=== PATIENT | male | born 1955 | race Caucasian/White ===

== ENCOUNTER 2021-11-03 08:13 | Inpatient (IN) | payer OTHER, BC ==
[2021-11-03] MEDS ORDERED: ONDANSETRON 4 MG/2 ML VIAL ONE (08:40)
[2021-11-03] MEDS ORDERED: MORPHINE 4 MG/ML SYR ONE (08:40)
[2021-11-03 08:52] LABS: Hematocrit 44.8 % (39.6-49.0); Lymphocytes % 32.4 % (15.3-44.8); MCV 83.9 fL (80-100); MPV 8.1 fL (7.6-11.3); RBC Red Blood Cell Count 5.34 M/uL (4.33-5.43)
[2021-11-03 09:00] LABS: Protime INR 1.12
[2021-11-03 09:13] LABS: Albumin 3.9 g/dL (3.4-5.0); Bilirubin Direct 0.2 mg/dL (0-0.2); Bilirubin Total 0.9 mg/dL (0.2-1.0); Magnesium 2.2 mg/dL (1.8-2.4); Potassium 3.8 mmol/L (3.5-5.1); Protein, Total 8.3 g/dL (6.4-8.2)
[2021-11-03] MEDS ORDERED: FENTANYL CITR 100 MCG/2 ML ONE ×2 (09:14→12:27)
--- NOTE | 2021-11-03 09:41 | RAD REPORT ---
EXAM DESCRIPTION: CT - Chest For Pe Angio - 11/03/2021 9:25 am CLINICAL HISTORY: chest pain, recent surgery COMPARISON: No comparisons TECHNIQUE: Dynamically enhanced 3 mm thick images of the chest were obtained during administration o f approximately 150mL Isovue 370 IV contrast. Coronal and oblique MIP reconstruction images were gene rated and reviewed. Exam utilizes a protocol to evaluate the pulmonary arterial tree. All CT scans are performed using dose optimization technique as appropriate and may include automated exposure control or mA/KV adjustment according to patient size. FINDINGS: No pulmonary emboli are identified. The aorta as imaged shows no acute or suspicious finding. No pericardial thickening or effusion. No infiltrate or mass in the lung parenchyma. No pleural effusion or pleural thickening. No mediastinal or hilar suspicious masses. No chest wall masses or abnormal axillary lymphadenopathy. IMPRESSION: No pulmonary emboli identified. No other significant or suspicious findings.
--- NOTE | 2021-11-03 09:44 | RAD REPORT ---
EXAM DESCRIPTION: CT - Abdomen Pelvis W Contrast - 11/03/2021 9:24 am CLINICAL HISTORY: abdominal pain, chest pain, recent surgery COMPARISON: No comparisons TECHNIQUE: Biphasic, helical CT imaging of the abdomen and pelvis was performed following 100 ml non -ionic IV contrast. No oral contrast administered. All CT scans are performed using dose optimization technique as appropriate and may include automated exposure control or mA/KV adjustment according to patient size. FINDINGS: No suspicious findings in the lung bases. The liver, spleen, and pancreas show no suspicious findings. Gallbladder and biliary tree are also wi thout suspicious finding. Symmetric renal function is seen with no hydronephrosis or suspicious renal mass. No obstructing or n onobstructing calculi. No pyelonephritis or acute parenchymal process. No bladder abnormalities. No a drenal abnormalities. No dilated bowel loops or bowel wall thickening. Appendix is normal. Left-sided diverticulosis presen t without diverticulitis. No free air, free fluid or inflammatory stranding. No hernia, mass or bulk y lymphadenopathy. No suspicious bony findings. IMPRESSION: Contrast enhanced CT abdomen and pelvis showing no significant or suspicious finding.
--- NOTE | 2021-11-03 10:12 | RAD REPORT ---
EXAM DESCRIPTION: RAD - Chest Single View - 11/03/2021 9:45 am CLINICAL HISTORY: CHEST PAIN COMPARISON: None TECHNIQUE: AP portable chest image was obtained 11/03/2021 9:45 am . FINDINGS: Lungs are clear. Heart and vasculature are normal. No measurable pleural effusion and no p neumothorax. No acute bony abnormality seen. No acute aortic findings suspected. IMPRESSION: No acute cardiopulmonary process.
[2021-11-03] MEDS ORDERED: ASPIRIN 81 MG CHEWABLE TABLET ONE (10:16)
[2021-11-03] MEDS ORDERED: LIDOCAINE 1% 20 ML MDV ONE (12:26)
[2021-11-03] MEDS ORDERED: HEPA 1000U/500MLS 2,000 UNIT/1,000 ML BAG IV ONE (12:26)
[2021-11-03] MEDS ORDERED: HEPARIN 10,000 UNIT/10 ML VIAL IV ONE (12:27)
[2021-11-03] MEDS ORDERED: HEPARIN 5000 UNIT/ML 1 ML VIAL ONE (12:27)
[2021-11-03] MEDS ORDERED: VERAPAMIL HCL 10 MG/4 ML VIAL IV ONE (12:27)
[2021-11-03] MEDS ORDERED: MIDAZOLAM HCL 2 MG/2 ML INJ ONE (12:27)
[2021-11-03] MEDS ORDERED: ATROPINE SULF 1 MG/10 ML SYR IV ONE (12:27)
[2021-11-03] MEDS ORDERED: TICAGRELOR 90 MG TABLET PO ONE (12:28)
[2021-11-03] MEDS ORDERED: ASPIRIN 325 MG TAB ONE (12:28)
[2021-11-03] MEDS ORDERED: CLOPIDOGREL 75 MG TABLET ONE (12:28)
--- NOTE | 2021-11-03 12:37 | EDPHYS ---
Physician Documentation [facility] Name: Kaz Workman Age: 66 yrs Sex: Male : 1955 Arrival Date: 11/03/2021 Time: 08:13 Bed 3 Private MD: ED Physician Jacob Gomez HPI: 11/03 08:14 This 66 yrs old Male presents to ER via Wheelchair with complaints of Chest Pain. m 08:14 The patient or guardian reports chest pain that is located primarily in the substernal [facility] area. Onset: acutely, just prior to arrival, today. The pain radiates to This is a 66 year old male with no chronic medical conditions that presents to the ED with complaints of . Historical: - Allergies: 08:15 No Known Allergies; aa5 - Home Meds: 08:15 Oxycodone HCl Oral [Active]; Tramadol Oral [Active]; Celebrex Oral [Active]; tizanidine aa5 oral [Active]; - PMHx: 08:15 None; aa5 - PSHx: 08:15 R knee replacement; Right hand; R inguinal hernia; L little finger; aa5 - Immunization history:: Adult Immunizations unknown. - Social history:: Smoking status: Patient denies any tobacco usage or history of. ROS: 12:09 Constitutional: Negative for fever, chills, and weight loss. jmm 12:09 Cardiovascular: Positive for chest pain. 12:09 Abdomen/GI: Positive for abdominal pain. 12:09 All other systems are negative. Exam: 12:09 Constitutional: This is a well developed, well nourished patient who is awake, alert, jmm and in no acute distress. Head/Face: atraumatic. Eyes: EOMI, no conjunctival erythema appreciated ENT: Moist Mucus Membranes Neck: Trachea midline, Supple Chest/axilla: Normal chest wall appearance and motion. 12:09 Back: Normal ROM Skin: General appearance color normal MS/ Extremity: Moves all extremities, no obvious deformities appreciated, no edema noted to the lower extremities Neuro: Awake and alert Psych: Behavior is normal, Mood is normal, Patient is cooperative and pleasant 12:09 Cardiovascular: Rate: normal, Rhythm: regular. 12:09 Respiratory: the patient does not display signs of respiratory distress, Respirations: normal, Breath sounds: are clear throughout. 12:09 Abdomen/GI: Inspection: abdomen appears normal, Palpation: soft, mild abdominal tenderness, in the epigastric area. Vital Signs: 08:15 BP 155 / 101; Pulse 70; Resp 26 S; Temp 97.6(TE); Pulse Ox 100% on R/A; Weight 78.47 kg aa5 (R); Height 6 ft. 1 in. (185.42 cm) (R); Pain 7/10; 09:00 BP 162 / 106; Pulse 52; Resp 16 S; Pulse Ox 100% on R/A; aa5 09:30 BP 138 / 93; Pulse 57; Resp 16 S; Pulse Ox 96% on R/A; aa5 10:30 BP 151 / 89; Pulse 60; Resp 16 S; Pulse Ox 98% on R/A; aa5 11:30 BP 141 / 78; Pulse 63; Resp 16 S; Temp 97.8(TE); Pulse Ox 98% on R/A; aa5 08:15 Body Mass Index 22.82 (78.47 kg, 185.42 cm) aa5 MDM: 08:22 Patient medically screened. [facility] 11:57 The patient was given aspirin in the Emergency Department. viviane 12:10 Data reviewed: vital signs, nurses notes. Counseling: I had a detailed discussion with maria eugenia the patient and/or guardian regarding: the historical points, exam findings, and any diagnostic results supporting the discharge/admit diagnosis, the need for outpatient follow up, to return to the emergency department if symptoms worsen or persist or if there are any questions or concerns that arise at home. 11/03 08:14 Order name: Basic Metabolic Panel; Complete Time: 09:35 [facility] 11/03 08:14 Order name: CBC with Diff; Complete Time: 09:04 [facility] 11/03 08:14 Order name: LFT's; Complete Time: 09:35 [facility] 11/03 08:14 Order name: Magnesium; Complete Time: :35 [facility] 11/03 08:14 Order name: NT PRO-BNP; Complete Time: 09:35 [facility] 11/03 08:14 Order name: PT-INR; Complete Time: 09:04 [facility] 11/03 08:14 Order name: Troponin HS; Complete Time: 09:35 [facility] 11/03 08:14 Order name: XRAY Chest (1 view); Complete Time: 10:15 [facility] 11/03 08:23 Order name: SARS-COV-2 RT PCR (Document "Date of Onset" if Symptomatic); Complete Time: [facility] 12:56 11/03 08:46 Order name: CT Chest For PE Angio; Complete Time: 09:43 [facility] 11/03 08:46 Order name: CT Abd/Pelvis - IV Contrast Only; Complete Time: 09:47 [facility] 11/03 11:12 Order name: Troponin High Sensitivity; Complete Time: 12:04 [facility] 11/03 08:14 Order name: EKG; Complete Time: 08:15 [facility] 11/03 08:14 Order name: Cardiac monitoring; Complete Time: 08:29 [facility] 11/03 08:14 Order name: EKG - Nurse/Tech; Complete Time: 08:29 [facility] 11/03 08:14 Order name: IV Saline Lock; Complete Time: 08:29 [facility] 11/03 08:14 Order name: Labs collected and sent; Complete Time: 08:29 [facility] 11/03 08:14 Order name: O2 Per Protocol; Complete Time: 08:29 [facility] 11/03 08:14 Order name: O2 Sat Monitoring; Complete Time: 08:29 [facility] 11/03 09:34 Order name: EKG - Nurse/Tech; Complete Time: 10:08 [facility] 11/03 12:49 Order name: Heart Healthy EDMS Administered Medications: 08:35 Drug: Zofran (Ondansetron) 4 mg Route: IVP; Site: left forearm; aa5 09:04 Follow up: Response: No adverse reaction aa5 08:37 Drug: morphine 4 mg Route: IVP; Infused Over: 4 mins; Site: left forearm; aa5 09:04 Follow up: Response: No adverse reaction; Pain is unchanged, physician notified aa5 09:10 Drug: fentaNYL (PF) 50 mcg Route: IVP; Site: left forearm; aa5 09:13 Follow up: Response: No adverse reaction aa5 10:22 Drug: Aspirin Chewable Tablet 324 mg Route: PO; aa5 11:30 Follow up: Response: No adverse reaction aa5 Disposition: 19:58 Co-signature as Attending Physician, Jacob RAMIREZ was immediately available on-site ms3 in the Emergency Department for consultation in the care of the patient.. Disposition Summary: 11/03/21 12:37 Hospitalization Ordered Hospitalization Status: Inpatient Admission maria eugenia Provider: Dar Bruner Location: Telemetry/MedSurg (Inpatient) [facility] Condition: Stable jmm Problem: new jmm Symptoms: have improved jmm Bed/Room Type: Standard [facility] Room Assignment: [facility] Diagnosis - Non ST elevation PR jmm Discharge Instructions: - Discharge Summary Sheet ss Forms: - Medication Reconciliation Form jmm - SBAR form ss Signatures: Dispatcher [employer] EDMS Gee Steen PA PA jmm Calderon, Audri, RN RN aa5 Jacob Gomez DO DO ms3 Corrections: (The following items were deleted from the chart) 09:25 08:30 Stone Protocol+CT.RAD.BRZ ordered. EDMS EDMS
--- NOTE | 2021-11-03 12:37 | ER ---
Nurse's Notes [facility] Name: Kaz Workman Age: 66 yrs Sex: Male : 1955 Arrival Date: 11/03/2021 Time: 08:13 Bed 3 Private MD: Diagnosis: Non ST elevation [place] Presentation: 11/03 08:15 Chief complaint: Patient states: started having chest pain, SOB, and feeling dizzy on aa5 his way to his post-op follow-up appointment around 0750, pt reports he had a total knee replacement October 24, 2021. 08:15 Coronavirus screen: At this time, the client does not indicate any symptoms associated aa5 with coronavirus-19. Ebola Screen: Patient denies travel to an Ebola-affected area in the 21 days before illness onset. Initial Sepsis Screen: Does the patient meet any 2 criteria? RR > 20 per min. Does the patient have a suspected source of infection? No. Patient's initial sepsis screen is negative. Risk Assessment: Do you want to hurt yourself or someone else? Patient reports no desire to harm self or others. Onset of symptoms was November 03, 2021. 08:15 Acuity: DOROTHEA 3 aa5 08:15 Method Of Arrival: Wheelchair aa5 Historical: - Allergies: 08:15 No Known Allergies; aa5 - Home Meds: 08:15 Oxycodone HCl Oral [Active]; Tramadol Oral [Active]; Celebrex Oral [Active]; tizanidine aa5 oral [Active]; - PMHx: 08:15 None; aa5 - PSHx: 08:15 R knee replacement; Right hand; R inguinal hernia; L little finger; aa5 - Immunization history:: Adult Immunizations unknown. - Social history:: Smoking status: Patient denies any tobacco usage or history of. Screenin:15 Abuse screen: Denies threats or abuse. Nutritional screening: No deficits noted. aa5 Tuberculosis screening: Possible symptoms: unexplained weight loss, Intervention for positive screen: ED Physician notified. 08:30 Fall Risk IV access (20 points). Total Kidd Fall Scale indicates No Risk (0-24 pts). aa5 Assessment: 08:15 General: Appears uncomfortable, Behavior is cooperative, anxious. Pain: Complains of aa5 pain in mid-sternal area Pain does not radiate. Pain currently is 7 out of 10 on a pain scale. Quality of pain is described as sharp, Pain began today around 0750 Is continuous. Neuro: Level of Consciousness is awake, alert, obeys commands, Oriented to person, place, time, situation, As400 Programmer are equal bilaterally Moves all extremities. Speech is normal, Facial symmetry appears normal. Cardiovascular: Heart tones S1 S2 present Rhythm is sinus rhythm. Respiratory: Airway is patent Respiratory effort is even, unlabored, Respiratory pattern is regular, symmetrical, Breath sounds are clear bilaterally. GI: Abdomen is flat, non-distended, Bowel sounds present X 4 quads. Abd is soft and non tender X 4 quads. Patient currently denies nausea, vomiting. : No signs and/or symptoms were reported regarding the genitourinary system. EENT: No signs and/or symptoms were reported regarding the EENT system. Derm: Skin is pink, warm \T\ dry. Musculoskeletal: Reports right knee surgery 10/24/21. 09:04 Reassessment: Patient is alert, oriented x 3, equal unlabored respirations, skin aa5 warm/dry/pink. Patient states symptoms have not improved. PA was notified . 09:15 Reassessment: Pt to CT via stretcher . aa5 10:00 Reassessment: Patient is alert, oriented x 3, equal unlabored respirations, skin aa5 warm/dry/pink. Patient states feeling better. 10:30 Reassessment: Patient is alert, oriented x 3, equal unlabored respirations, skin aa5 warm/dry/pink. 10:30 Cardiovascular: Rhythm is sinus rhythm. aa5 11:30 Reassessment: Patient is alert, oriented x 3, equal unlabored respirations, skin aa5 warm/dry/pink. Vital Signs: 08:15 BP 155 / 101; Pulse 70; Resp 26 S; Temp 97.6(TE); Pulse Ox 100% on R/A; Weight 78.47 kg aa5 (R); Height 6 ft. 1 in. (185.42 cm) (R); Pain 11/06; 09:00 BP 162 / 106; Pulse 52; Resp 16 S; Pulse Ox 100% on R/A; aa5 09:30 BP 138 / 93; Pulse 57; Resp 16 S; Pulse Ox 96% on R/A; aa5 10:30 BP 151 / 89; Pulse 60; Resp 16 S; Pulse Ox 98% on R/A; aa5 11:30 BP 141 / 78; Pulse 63; Resp 16 S; Temp 97.8(TE); Pulse Ox 98% on R/A; aa5 08:15 Body Mass Index 22.82 (78.47 kg, 185.42 cm) aa5 ED Course: 08:13 Patient arrived in ED. as 08:14 Gee Steen PA is PHCP. jm 08:14 Jacob Gomez DO is Attending Physician. jmm 08:15 Arm band placed on Patient placed in an exam room, on a stretcher. aa5 08:15 Client placed on continuous cardiac and pulse oximetry monitoring. NIBP monitoring aa5 applied. 08:15 Patient has correct armband on for positive identification. Placed in gown. Bed in low aa5 position. Call light in reach. Side rails up X2. 08:18 Hattie Magaña, RN is Primary Nurse. aa5 08:30 Initial lab(s) drawn, by me, sent to lab. Inserted saline lock: 20 gauge in left aa5 forearm, using aseptic technique. Blood collected. 08:44 Triage completed. aa5 08:46 No provider procedures requiring assistance completed. Patient maintains SpO2 aa5 saturation greater than 95% on room air. 09:26 CT Abd/Pelvis - IV Contrast Only In Process Unspecified. EDMS 09:27 CT Chest For PE Angio In Process Unspecified. EDMS 09:47 XRAY Chest (1 view) In Process Unspecified. EDMS 11:26 Troponin High Sensitivity Sent. kr3 12:36 Dar Bruner MD is Hospitalizing Provider. jmm 12:37 Patient admitted, IV remains in place. aa5 Administered Medications: 08:35 Drug: Zofran (Ondansetron) 4 mg Route: IVP; Site: left forearm; aa5 09:04 Follow up: Response: No adverse reaction aa5 08:37 Drug: morphine 4 mg Route: IVP; Infused Over: 4 mins; Site: left forearm; aa5 09:04 Follow up: Response: No adverse reaction; Pain is unchanged, physician notified aa5 09:10 Drug: fentaNYL (PF) 50 mcg Route: IVP; Site: left forearm; aa5 09:13 Follow up: Response: No adverse reaction aa5 10:22 Drug: Aspirin Chewable Tablet 324 mg Route: PO; aa5 11:30 Follow up: Response: No adverse reaction aa5 Medication: 12:37 VIS not applicable for this client. aa5 Outcome: 12:37 Decision to Hospitalize by Provider. [facility] 12:37 Patient left the ED. aa5 12:37 Admitted to [facility] accompanied by nurse, family with patient, via stretcher, on aa5 monitor, with chart. 12:37 Condition: stable 12:37 Instructed on the need for admit. Signatures: Dispatcher [employer] EDMS Gee Steen PA PA jmm Martinez, Amelia as Calderon, Audri RN RN aa5 Doris Lemon RN RN Mary Bill RN RN kr3 Corrections: (The following items were deleted from the chart) 08:53 08:15 BP 155 / 101; Pulse 70bpm; Resp 26bpm; Spontaneous; Pulse Ox 100% RA; 78.47 kg aa5 Reported; Height 6 ft. 1 in. Reported; BMI: 22.8; Pain 7/10; aa5 13:37 12:56 Patient left the ED. ss aa5
--- NOTE | 2021-11-03 12:42 | P.HP ---
Certification for Inpatient Patient admitted to: Inpatient With expected LOS: >2 Midnights Practitioner: I am a practitioner with admitting privileges, knowledge of patient current condition, hospital course, and medical plan of care. Services: Services provided to patient in accordance with Admission requirements found in Title 42 Section 412.3 of the Code of Federal Regulations Patient History Date of Service: 11/03/21 Reason for admission: Chest pain poss PA History of Present Illness: AGe 66 Aw acute of chest pain radiating to the left Jaw with elevated troponins. Patient has had no cardiac history before apparently he had knee surgery knee replacement recently on the right side has been excruciating amount of pain and underwent a cardiac cath and he had no coronary artery disease and there is no prior history of coronary artery disease he does not take any medications at home probably stress-induced cardiomyopathy Allergies No Known Allergies Allergy (Verified 11/03/21 13:46) Review of Systems 10-point ROS is otherwise unremarkable Musculoskeletal: Other Physical Examination - Physical Exam General: Alert, Oriented x3 HEENT: Atraumatic Neck: Supple Respiratory: Clear to auscultation bilaterally Cardiovascular: No edema, Abnormal S3 Capillary refill: >2 Seconds Gastrointestinal: Soft and benign, Non-distended - Studies Laboratory Data (last 24 hrs) 11/03/21 08:30: PT 12.4, INR 1.12 11/03/21 08:30: WBC 12.5 H, Hgb 14.9, Hct 44.8, Plt Count 419 H 11/03/21 08:30: Sodium 136, Potassium 3.8, BUN 26 H, Creatinine 0.93, Glucose 134 H, Magnesium 2.2, Total Bilirubin 0.9, AST 24, ALT 47, Alkaline Phosphatase 84 Assessment and Plan - Problems (Diagnosis) (1) Stress-induced cardiomyopathy Current Visit: Yes Status: Acute Plan: Patient is 66 years of age admitted with chest pain shortness of breath elevated troponin emergent cardiac catheterization did not show any evidence of coronary artery disease he has no prior history of coronary artery disease not have any risk factors does not take any medications 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
[2021-11-03] MEDS ORDERED: NA CHLORIDE 0.9% 500 ML ONE (12:46)
[2021-11-03] MEDS ORDERED: NACHLORIDE 0.45% 1,000 ML IV ONE (13:35)
[2021-11-03] MEDS: NACHLORIDE 0.45% 1,000 ML IV SCH (14:00)
[2021-11-03 15:30] VITALS: O2SAT 98
[2021-11-03] MEDS ORDERED: METOPROLOL XL 25 MG TAB PO SCH (16:00)
[2021-11-03] MEDS: LOSARTAN POTASSIUM 50 MG TABLET PO SCH (16:00)
[2021-11-03 16:20] VITALS: BMI 22.6
[2021-11-03] MEDS: Oxycodone HCl/Acetaminophen 1 TAB TAB PO PRN ×2 (17:38→22:07)
[2021-11-03] MEDS: ONDANSETRON 4 MG (ODT) TAB PO PRN (17:38)
--- NOTE | 2021-11-03 18:39 | CON ---
Date of Consultation: 11/03/2021 Reason For Consultation: ST-elevation [place]. History Of Present Illness: This is a 66-year-old male who has no medical history, very active, does exercise on a regular basis. Started having chest pain around 7 o'clock in the morning and the pain is pressure like with nausea and diaphoresis. No shortness of breath. Presented to the emergency r oom. EKG showed diffuse ST elevation. Troponin initially was negative. Repeat troponin jumped to 4 000, so the patient was sent to the cardiac catheterization laboratory for coronary angiogram. His c hest pain at time of my evaluation was very mild and the patient has no other complaints. Past Medical History: None. Medications: None. Allergies: NONE. Social History: Does not smoke or drink. Does not use any drugs. Family History: No premature coronary artery disease, cancer. Review of Systems: All systems reviewed and they were negative, except as mentioned in HPI. Physical Examination: Vital Signs: Reviewed. Head and Neck: Pupils are equal, reactive to light. Intact eye movements. No JVD. No cervical jesus nopathy. Neck: Supple. Thyroid is not enlarged. Lungs: Clear to auscultation bilaterally. No rhonchi, rales, or crackles. No accessory muscle use. Heart: Regular rate and rhythm. No extra sounds. Abdomen: Soft, nontender. Bowel sounds positive. No organomegaly. No masses or hernia. No rigidi ty or rebound Extremities: No edema, clubbing, cyanosis. Intact pulses. Skin: No rashes. Neurologic: Alert, awake, oriented x3. No acute focal deficits appreciated. Investigations: Acute myocardial infarction with diffuse ST elevation. This could be true acute CHARLA [place] versus a stress-induced cardiomyopathy. Will take the patient emergently into the cardiac cathete rization laboratory for definitive evaluation and management. /JEANNINE Voice ID: [id number] Report ID: [id number]
[2021-11-03] MEDS ORDERED: PROMETHAZINE INJ 25 MG/ML AMP IV PRN (20:05)
[2021-11-03] MEDS: MORPHINE 2 MG/ML SYR IV PRN (20:57)
--- NOTE | 2021-11-04 | OP ---
Date of Procedure: 11/03/2021 Surgeon: ISMAEL FALK Procedure Performed: 1.Selective coronary angiogram. 2.Left heart catheterization. 3.Left ventriculogram. Indication: ST-elevation myocardial infarction. Access: Right radial artery 6-[place] Ze[place]ander closed with TR band. Complications: None. Bleeding: Less than 10 mL. Anesthesia: Total sedation time was 25 minutes, used fentanyl and Versed. Description Of Procedure: After risks, benefits, and alternatives were explained, the patient agreed to procedure and signed informed consent. The patient was brought into the cardiac catheterization laboratory, prepped and draped in usual sterile fashion. Then, we accessed right radial artery using pediatric micropuncture kit, placed a 6-[place] slender sheath and took a 5-[place] 4.0 catheter in the aortic root, engaged left main, right coronary artery, took standard views, and then advanced the catheter into the LV and exchanged for a pigtail. LVEDP was measured and did left ventriculogra m and pullback did not record any gradient. Then, we removed the catheter and the sheath and placed TR band with good hemostasis. Findings: 1.Left main; large and normal. 2.LAD is moderate size and normal, has very long segment of myocardial bridge in the midportion and diagonal branches are free of disease. 3.Left circumflex large, codominant, and normal. 4.RCA; large and codominant and normal. 5.LVEDP normal at 5 mmHg. 6.Severely depressed LV ejection fraction at 30% with significant apical dyskinesis and apical ballo oning. Conclusion: 1.No coronary artery disease. All arteries are normal. 2.Stress-induced cardiomyopathy, takotsubo pattern. Plan: Start SILVIA inhibitor and beta vanessa and titrate up as blood pressure tolerates and low-salt d iet and obtain echocardiogram. SR/MODL Voice ID: [id number] Report ID: [id number]
[2021-11-04 06:47] LABS: Potassium 4.2 mmol/L (3.5-5.1)
[2021-11-04] MEDS: ONDANSETRON 4 MG (ODT) TAB PO PRN (08:03)
[2021-11-04] MEDS: LOSARTAN POTASSIUM 50 MG TABLET PO SCH ×2 (08:03→08:13)
[2021-11-04] MEDS: MORPHINE 2 MG/ML SYR IV PRN ×2 (08:04→16:37)
[2021-11-04] MEDS: NACHLORIDE 0.45% 1,000 ML IV SCH (09:47)
[2021-11-04 16:57] VITALS: BP 117/68; TEMP 98.4
--- NOTE | 2021-11-04 17:02 | P.DS ---
Admission Date: 11/03/21 Discharge Date: 11/04/21 Disposition: ROUTINE DISCHARGE Discharge Condition: GOOD Reason for Admission: Chest pain poss PA Brief History of Present Illness: 66 y o male pt who presented acute of chest pain radiating to the left Jaw with elevated troponins. 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 Hospital Course: He was admitted to the acute medicine service and observation was done overnight today. As per cardiology report he had no significant coronary artery disease since his coronary arteries with clean but did have evidence of stress cardiomyopathy. He was started on medication of losartan and metoprolol as per cardiology and he was cleared for discharge today to follow-up with cardiology as scheduled on outpatient. Echocardiogram was obtained to assist with management recommendation. He was deemed stable for discharge today and will follow up with a formula clerk scheduled with prescription as per cardiology. team. Vital Signs/Physical Exam: Temp Pulse Resp BP Pulse Ox 98.4 F 73 18 117/68 97 11/04/21 16:00 11/04/21 16:00 11/04/21 16:00 11/04/21 16:00 11/04/21 16:00 General: Alert, Oriented x3 HEENT: Atraumatic, Normocephalic Neck: Supple Respiratory: Normal air movement Cardiovascular: Regular rate/rhythm, Normal S1 S2 Gastrointestinal: Soft and benign Musculoskeletal: No swelling Neurological: Normal speech, Normal strength at 5/5 x4 extr Laboratory Data at Discharge: WBC 12.5 K/uL (4.3-10.9) H 11/03/21 08:30 Hgb 14.9 g/dL (13.6-17.9) 11/03/21 08:30 Hct 44.8 % (39.6-49.0) 11/03/21 08:30 Plt Count 419 K/uL (152-406) H 11/03/21 08:30 PT 12.4 SECONDS (9.5-12.5) 11/03/21 08:30 INR 1.12 11/03/21 08:30 Sodium 139 mmol/L (136-145) 11/04/21 06:15 Potassium 4.2 mmol/L (3.5-5.1) 11/04/21 06:15 BUN 18 mg/dL (7-18) 11/04/21 06:15 Creatinine 0.78 mg/dL (0.55-1.3) 11/04/21 06:15 Glucose 106 mg/dL (74-106) 11/04/21 06:15 Magnesium 2.2 mg/dL (1.8-2.4) 11/03/21 08:30 Total Bilirubin 0.9 mg/dL (0.2-1.0) 11/03/21 08:30 AST 24 U/L (15-37) 11/03/21 08:30 ALT 47 U/L (12-78) 11/03/21 08:30 Alkaline Phosphatase 84 U/L (45-117) 11/03/21 08:30 Home Medications: Losartan Potassium [Cozaar*] 25 mg PO DAILY 30 Days #30 tablet 11/04/21 Metoprolol Succinate [Toprol Xl*] 25 mg PO BEDTIME 30 Days #30 tab 11/04/21 New Medications: Losartan Potassium [Cozaar*] 25 mg PO DAILY 30 Days #30 tablet Metoprolol Succinate [Toprol Xl*] 25 mg PO BEDTIME 30 Days #30 tab Diet: AHA Activity: Ad pepe Followup: Unknown,U [Primary Care Provider] -
--- NOTE | 2021-11-04 20:40 | PN ---
Date of Progress Note: 11/04/2021 Subjective: Seen at bedside, doing clinically well. No symptoms except shortness of breath on exert ion. Review of Systems: No chest pain or resting shortness of breath. Has dyspnea on exertion. No orthopnea, nausea, vomiti ng, diarrhea. No cough. No fever. All other systems reviewed are negative. Physical Examination: Vital Signs: Reviewed. Head and Neck: Pupils are equal, reactive to light. Intact eye movements. No JVD. No cervical lym phadenopathy. Neck is supple. Thyroid is not enlarged. Lungs: Clear to auscultation bilaterally. No rhonchi, wheezing, or crackles. No accessory muscle u se. Heart: Regular rate and rhythm. No extra sounds. Abdomen: Soft, nontender. Bowel sounds positive. No organomegaly. No masses or hernia. No rigidi ty or rebound. Extremities: No clubbing, cyanosis. Intact pulses. Skin: No rash. Neurologic: Alert, awake, oriented x3. No acute focal deficits appreciated. Investigations: His creatinine is 0.78. Hemoglobin is 14.9. Assessment And Recommendation: 1.Stress-induced cardiomyopathy, takotsubo pattern. Patient had a coronary angiogram that was total ly normal when he has a severely depressed ejection fraction with apical ballooning. Agree with meto prolol and losartan. We will attempt to titrate as the blood pressure tolerates on both medications and the patient can be followed up as an outpatient once discharged. We will plan for maximizing his heart failure medications and repeating echocardiogram in 6-8 weeks. 2.Elevated troponin. This is due to takotsubo, acute stress induced cardiomyopathy and no coronary artery disease per coronary angiogram. 3.COVID positive. Patient is being followed by Dr. Bruner. SR/MODL Voice ID: [id number] Report ID: [id number]
--- NOTE | 2021-11-07 14:01 | EKG ---
Test Date: 2021-11-03 Test Time: 14:59:32 Glove Maker: SHANON MEASUREMENT RESULTS: Intervals: Rate: 81 OH: 138 QRSD: 86 QT: 422 QTc: 490 [place]: P: 53 OH: 138 QRS: 117 T: 76 INTERPRETIVE STATEMENTS: Normal sinus rhythm Left posterior fascicular block Inferior infarct, possibly acute Anterior infarct, possibly acute ACUTE HI Abnormal ECG No previous ECG available for comparison Electronically Signed On 11-07-21 13:52:36 CDT by Ramy Lyon
--- NOTE | 2021-11-07 14:03 | EKG ---
Test Date: 2021-11-03 Test Time: 08:22:20 Treer: FIDEL MEASUREMENT RESULTS: Intervals: Rate: 60 MA: 138 QRSD: 90 QT: 438 QTc: 438 [place]: P: 28 MA: 138 QRS: 76 T: 71 INTERPRETIVE STATEMENTS: Normal sinus rhythm Early repolarization Normal ECG No previous ECG available for comparison Electronically Signed On 11-07-21 13:54:03 CDT by Ramy Lyon
--- NOTE | 2021-11-07 14:03 | EKG ---
Test Date: 2021-11-03 Test Time: 10:06:13 Inoculator: GAUDENCIO MEASUREMENT RESULTS: Intervals: Rate: 50 MO: 166 QRSD: 90 QT: 482 QTc: 439 [place]: P: 73 MO: 166 QRS: 114 T: 77 INTERPRETIVE STATEMENTS: Sinus bradycardia Left posterior fascicular block Cannot rule out Anterior infarct, age undetermined Abnormal ECG Compared to ECG 11/03/2021 08:22:20 Left posterior fascicular block now present Myocardial infarct finding now present Sinus rhythm no longer present Early repolarization no longer present Electronically Signed On 11-07-21 13:53:39 CDT by Ramy Lyon
--- OUTSIDE RECORDS SUMMARY | 2021-11-16 16:37 | XMS REPORT | Continuity of Care Document ---
:1955 Author Organization [facility] t Address [address] [place] [address] Care Team Providers Name Role Phone Stocks, W Attending Clinician Unavailable FOG_A_Provider Attending Clinician Unavailable Stocks, W Attending Clinician [phone] Stocks, W Admitting Clinician Unavailable FOG_A_Provider Admitting Clinician Unavailable Payers Payer Name Policy Type Policy Number Effective Date Expiration Date S adryan [place]: [id number] 2021 [employer] 00:00:00 [place] [id number] 2021 [place] (MEDICARE 00:00:00 SUPPLEMENT) EPISODE SOLUTIONS [id number] Problems This patient has no known problems. Allergies, Adverse Reactions, Alerts Allergy Allergy Status Severity Reaction(s) Onset Inactive Treating Comm ents Source Name Type Date Date Clinician No Known DA Active U [facility] Allergie 4-28 Clear s 00:00: Zhou [address] [place] [address] Medications This patient has no known medications. Procedures Procedure Date / Time Performed Performing Clinician Derek acevedo [id number] 2021-10-24 00:00:00 [facility] Encounters Start End Encounter Admission Attending Care Care Encounter Source Date/Time Date/Time Type Type Clinicians Facility Department ID 2021-10-12 Inpatient BARRY Nunez [facility] [id number] [facility] 12:29:00 Pat[facility] 2021-11-08 2021-11-08 Outpatient FOG_A_Provi AOSM AOSM [id number] Maria Del Rosario 09:31:00 09:31:00 gl[facility] [id number] [facility] 2021-11-08 2021-11-08 Outpatient Enrique, AOSM AOSM [id number] 00:00:00 00:00:00 Patricio Mckenna [id number] 2021-10-28 2021-10-28 Outpatient FOG_A_Provi AOSM AOSM [id number] Maria Del Rosario 12:14:00 12:14:00 glenn [id number] [facility] 2021-10-26 2021-10-26 Outpatient FOG_A_Provi AOSM AOSM [id number] Maria Del Rosario 12:41:00 12:41:00 glenn [id number] [facility] 2021-10-26 2021-10-26 Outpatient FOG_A_Provi AOSM AOSM [id number] Maria Del Rosario 12:41:00 12:41:00 glenn [id number] [facility] 2021-10-24 2021-10-24 Inpatient BARRY Nunez, [facility] [id number] [facility] 06:01:00 15:44:00 Patricio [id number] [facility] 2021-10-24 2021-10-24 Inpatient BARRY Nunez, [facility]G [id number] [facility] 06:01:00 15:44:00 Patricio 42 [facility] 2021-10-23 2021-10-23 Outpatient FOG_A_Provi AOSM AOSM [id number] Maria Del Rosario 12:46:00 12:46:00 glenn [id number] [facility] 2021-10-23 2021-10-23 Outpatient FOG_A_Provi AOSM AOSM [id number] Maria Del Rosario 12:46:00 12:46:00 glenn [id number] [facility] 2021-10-19 2021-10-19 Outpatient FOG_A_Provi AOSM AOSM [id number] Maria Del Rosario 01:04:00 01:04:00 glenn [id number] [facility] 2021-10-05 2021-10-05 Outpatient EL Stocks, HCATO RADI [id number] [facility] 07:56:00 07:56:00 Patricio 06 [facility] 2021-08-25 2021-08-25 Outpatient EL Stocks, HCATO 3DAY [id number] [facility] 08:00:00 23:00:00 Patricio 09 [facility] 2021-08-25 2021-08-25 Outpatient Stocks, HCACL LABO [id number] [facility] 17:04:00 17:04:00 Patricio [facility] 2021-08-25 2021-08-25 Outpatient EL Stocks, HCATO RADI [id number] [facility] 09:49:00 09:49:00 Patricio [facility] 2021-08-25 2021-08-25 Outpatient EL Stocks, HCATO RADI [id number] [facility] 09:49:00 09:49:[address] [place] [address] [facility] Results Test Description Test Time Test Comments Results Result Comments Source Novel Coronavirus 2019 Inhouse 2021-10-06 02:28:00 Test Item Value Reference Range Interpretation Comme nts Novel Coronavirus 2018 Positive Negative A Criti justino result called to GERALDO Grace (test code = JARED FraserLAB.EE at 0228 COVNONPUI) 10/06/21Nurse r ead back result and tech confirmed it's correct? YPositive results are ind icative of the presence wgKNJM-[id number]-[id number] RN A, clinical correlation with patient hi storyand other diagnostic information is necessary to determinepatien t infection status. Positive result s do not rule outbacterial in fection or co-infection with other viru ses. Negative results do not preclude SA RS-CoV-2 infection andshould not b e used as the sole basis for patient man agementdecisions. Negative result s must be combined with otherclinical o bservations, patient history, and ep idemiologicalinformation. Detection of SA RS-CoV-2 RNA may be affected bysamp le collection methods, storage conditi ons, and/or stageof infection. Luan l RNA mutations, vaccinations, a ntiviraltherapeutics, antibiotics, ch emotherapeutic orimmunosuppres jesu drugs have not been evaluated for e ffectson detection. Results are for the identification of SARS-CoV-2 RNA usingreal-time (RT) polymerase vicente n reaction (PCR) technologyfor t he qualitative detection of nucleic acid s from [id number]-[id number]-6 virus and diagn osis of SARS-CoV-2 virusinfection. It is an Emergency Use Authorization ( EUA) testauthorized by the U.S. FDA. Novel Coronavirus 2018 [id number] 02:28:00 Test Item Value Reference Range Interpretation Comments Novel Coronavirus Positive Negative A Critical r esult called to 2019 Inhouse (test GERALDO PUENTE PRESHO RNby code = COVNONPUI) G.LAB.EE a t 0228 10/06/21Nurse r ead back result and tech confirmed it's correct? Y Positive results are ind icative of the presence of SARS-CoV-2 RNA, clinical c orrelation with patient hi storyand other diagnosti c information is necessary to determinepat ient infection statu s. Positive results do not rule outbacterial in fection or co-infection wi th other viruses. Negati ve results do not preclude SARS-CoV-2 infection andsh ould not be used as the felipe e basis for patient managementdecis ions. Negative result s must be combined with otherclinical observations, p atient history, and epidemiological information . Detection of SARS-CoV-2 RNA may be affe cted bysample collec tion methods, storag e conditions, and /or stageof infection. Luna l RNA mutations, vacc inations, antiviraltherap eutics, antibiotics, chemotherapeuti c orimmunosuppres jesu drugs have not been e valuated for effectson d etection. Results are for the identification of SARS-CoV-2 RNA usingreal-time (RT) polymerase vicente n reaction (PCR) technolog yfor the qualitative det ection of nucleic acids f rom gfrLAFF-HlA-6 v irus and diagnosis of SA RS-CoV-2 virusinfection. It is an Emergency Use Authorization ( EUA) testauthorized by the U.S. FDA. - USG NDL PLACEMENT (Bxg/Asp)2021-10-05 10:35:00 [facility] 1955 Sex: M Patient Name: HIRO DOUGLASS Unit No: [id number] EXAMS: CPT CODE: [id number] USG NDL PLACEMENT (Bxg/Asp) 78481 INDICATION: Right knee pain. PROCEDURE: Ultrasound guided cryoanalgesia (Iovera) of the right anterior femoral cutaneous nerve, medial femoral cutaneous nerve, and the superior and inferior branches of the infrapatellar branch of the saphenous nerve. HEALTH CLUB MANAGER: Dr. Haro. MEDICATIONS: 1 % Lidocaine local anesthesia CONTRAST: None. COMPLICATION: None immediately evident. DESCRIPTION: After the procedure, including indication and potential complications had been discussed with the patient and questions answered, written informed consent was obtained. The patient was then taken to the ultrasound suite and placed on the table in supineposition with their treatment leg fully extended. The skin of the right knee was evaluated sonographically. The skin over the anterior femoral cutaneous nerve, medial femoral cutaneous nerve, and the superior and inferior branches of the infrapatellar branch of the saphenous nerve was marked. The skin was then prepped and draped sterilely. A time out was performed. After achieving 1% Lidocaine local anesthesia, the 55mm Smart Tip Iovera cryoanalgesia probe was inserted into the skin at the sites where the nerves had been identified by ultrasound, and the treatment was initiated. The duration of each treatment cycle was 1 minute and 10 seconds. The patent's skin was cleaned and the wound was covered with a band-aid. The patient was instructed to stand and mobilize the knee joint. No immediate complication were observed. The patient tolerated the procedure well and was subsequently discharged in stable condition with instructions for follow up. Preprocedural pain level: 0/ 10 Postprocedural pain level: 0/ 10 IMPRESSION: Cryoanalgesia of the right anterior femoral cutaneous nerve, medial femoral cutaneous nerve, and the superior and inferior branches of the infrapatellar branch of the saphenous nerve as above. at 1035 Reported and signed by: David Haro MD [facility] NAME: HIRO DOUGLASS [address] [place] [address] PHYS: Patricio Calderon MD : 1955 AGE: 66 SEX: M [place] [address] LOC: Y.RAD PHONE #: [phone] EXAM DATE: 10/05/2021 STATUS: REG CLI FAX #: [phone] RAD #: D/C DT PAGE 1 SignedReport (CONTINUED) Patient Name: HIRO DOUGLASS Unit No: [id number] EXAMS: CPT CODE: [id number] USG NDL PLACEMENT (Bxg/Asp) 83724 <Continued> CC: Patricio Nunez MD Technologist: AN VERDUZCO RDMS, RVT Transcribed D/ (1035) tVESNAJCL [facility] NAME: HIRO DOUGLASS [address] [place] [address] PHYS: Patricio Calderon MD : 1955 AGE: 66 SEX: Yary [place] [address] LOC: Y.RADPHONE #: [phone] EXAM DATE: 10/05/2021 STATUS: REG CLI FAX #: [phone] RAD #: D/C DT PAGE 2 Signed Report Patient Name: HIRO DOUGLASS Unit No: [id number] EXAMS: CPT CODE: [id number] USG NDL PLACEMENT (Bxg/Asp) 68632 <Continued> Orig Print D/T: S: 10/05/2021 (1038) [facility] NAME: HIRO DOUGLASS [address] [place] [address] PHYS: Patricio aClderon MD : 1955 AGE: 66 SEX: M [place], [place] [address] LOC: [place] PHONE #: [phone] EXAM DATE: 10/05/2021 STATUS: REG CLI FAX #: [phone] RAD #: D/C DT PAGE 3 Signed ReportPROTHROMBIN TIME 2021-08-26 08:54:00 Test Item Value Reference Range Interpretation Comments PROTHROMBIN TIME 11.7 secs 9.7-12.5 N Please note new normal PATIENT (test code = range. PTP) INTERNATIONAL NORMAL 1.05 <2.0 RECOMME NDED THERAPEUTIC RATIO (test code = RANGE FOR ORAL INR) ANTICOAGULANTTR EATMENT: CONDI TION INRProphylaxis of venous thrombos is in 2.0 - 3.0 high-risk medic al or surgical patientsTreatme nt of venous thrombos is 2.0 - 3.0Prevention o f embolism 2.0 - 3.0Prevention o f recurrent embol ism, or 3.0 - 4. 5 patients with mechanical pros thetic intravascular v collado IS PATIENT ON ANTICOAGULANTS ? NHas Lab been notified if Patient is on Heparin Drip? NOIf Yes, orderCBC, OCCULT BLOOD, PT every other day NTHROMBOPLASTIN TIME [id number] 08:54:00 Test Item Value Reference Range Interpretation Comments PTT ACTIVATED (test 43.2 secs 26.6-34.6 HH CRITICAL VALUE CALLED code = APTT) TO GERALDO Ring EA (AOS)D BACK & CONFIRME D? BY [id number] 1551Reported to THEO ANSARI /DR. Quinonez Y.LAB. MAV, on 08/26/21 at 0854.Please not e new normal range. IS PATIENT ON ANTICOAGULANTS ? NHas Lab been notified if Patient is on Heparin Drip? NOIf Yes, orderCBC, OCCULT BLOOD, PT every other day NVITAMIN D 25-HYDROXY (TOTAL)2021-08-26 08:31:00 Test Item Value Reference Range Interpretation Comments VITAMIN D 50.3 ng/mL 30.0-100.0 Vitamin D defic iency has 25-HYDROXY (TOTAL) been defi ramin by the (test code = [place] ofMed icine and VITD25) an Endocrine So [facility] guidel ine as alevel of serum 25-OH vitamin D less than 20 ng/mL (1,2).The Endocrine Society went on to further define vitamin Dinsufficiency as a level between 21 and 29 ng/mL (2).1. IOM (Ins titute of Medicine). 2010 . Dietary reference int akes for calcium and D. [place]: [employer] .2. Josselyn MF, Marilyn NC, Bertha leung DIEGO, et al. Evaluatio n, treatment, and prevention of vitamin D deficiency: an Endocrine Society clinica l practice guideline. SREEKANTH EM. 2010; 96():1911-30.P erformed At: [facility] [id number] [place], [place] [id number] Amado Rubio MD Ph:[phone] COMPREHENSIVE METABOLIC [id number] 14:46:00 Test Item Value Reference Range Interpretation Comments SODIUM (test code = 141 mmol/L 136-145 N NA) POTASSIUM (test code = 4.5 mmol/L 3.5-5.1 N K) CHLORIDE (test code = 104.0 mmol/L 98-107 N CL) CARBON DIOXIDE (test 28.1 mmol/L 21-32 N code = CO2) GLUCOSE (test code = 127 mg/dL 70-110 H GLU) BLOOD UREA NITROGEN 20 mg/dL 7-18 H (test code = BUN) GLOMERULAR FILTRATION 98.4 >60 Unit o f measure: RATE (test code = GFR) mL/mi n/1.73 [id number] Range:Healthy Adults >90 mL/min/1.73 m2 For Chronic Kidney Disease: St age II Mild Decrease in GFR 60-90 St age III Moderate Decrease in GFR 30-59 Stage IV Severe Decre ase in GFR 15- 29 Stage V Kidney Failure <15 CREATININE (test code 0.79 mg/dL 0.55-1.30 N = CREAT) TOTAL PROTEIN (test 7.2 g/dL 6.4-8.2 N code = PROT) ALBUMIN (test code = 3.9 g/dL 3.4-5.0 N ALB) GLOBULIN (test code = 3.3 g/dL 2.2-4.2 N GLOB) ALBUMIN/GLOBULIN RATIO 1.2 0.7-2.0 N (test code = A/G) CALCIUM (test code = 9.5 mg/dL 8.2-10.1 N CA) BILIRUBIN TOTAL (test 0.40 mg/dL 0.2-1.00 N code = BILT) SGOT/AST (test code = 23.0 U/L 15-37 N AST) SGPT/ALT (test code = 27.0 U/L 12-78 N Please note new ALT) normal range. ALKALINE PHOSPHATASE 78 U/L 46-116 N TOTAL (test code = ALKP) - MRI CHEST W/O [id number] 14:32:00 [facility] : 1955 Sex: M Patient Name: HIRO DOUGLASS Unit No: [id number] EXAMS: CPT CODE: [id number] MRI CHEST W/O CONT 35570 MRI OF THE CHEST DIAGNOSIS: There are 2 masses in the posterior lateral thorax the larger of which has an overlying skin marker. The larger mass measures 4 cm and is under the fascia and compressing the left latissimus dorsi muscle. The smaller mass is also fat signal and within the latissimus dorsi muscle measuring 2.4 cm. These are both consistent with lipomas. COMMENT: Scans were performed in the sagittal, axial and coronal planes utilizing T1, T2 and inversion recovery images. Fatty masses consistent with lipomas are present superficial to and within the latissimus dorsi muscle. No other masses are seen. No fluid collections are identified. No bony lesions are seen. at 1432 Reported and signed by: David Haro MD CC: Patricio Nunez MD Technologist: Jeanine Dunbar, RT(R) Transcribed D/ (143) WillisL [facility] NAME: HIRO DOUGLASS [address] [facility] PHYS: Patricio Calderon MD : 1955 AGE: 66 SEX: M [place] [address] LOC: Y.MRI PHONE #: [phone] EXAM DATE: 08/25/2021 STATUS: REG CLI FAX #: [phone] RAD #: D/C DT PAGE 1 Signed Report Patient Name: HIRO DOUGLASS Unit No: [id number] EXAMS: CPT CODE: [id number] MRI CHEST W/O CONT [id number] <Continued> Orig Print D/T: S: 08/25/2021 (143) [facility] NAME: HIRO DOUGLASS [address] [facility] PHYS: Patricio Calderon MD : 1955 AGE: 66 SEX: M [place] [address] LOC: Y.MRI PHONE #: [phone] EXAM DATE: 08/25/2021 STATUS: REG CLI FAX #: [phone] RAD #: D/C DT PAGE 2 Signed ReportCBC W/AUTO [id number] 14:28:00 Test Item Value Reference Range Interpretation Comments WHITE BLOOD CELL (test code = WBC) 5.9 K/mm3 5.7-10.5 N RED BLOOD CELL (test code = RBC) 5.35 M/mm3 4.2-5.4 N HEMOGLOBIN (test code = HGB) 15.0 g/dL 12-16 N HEMATOCRIT (test code = HCT) 45.6 % 37-47 N MEAN CELL VOLUME (test code = MCV) 85 fL 80-98 N MEAN CELL HGB (test code = MCH) 28.0 pg 27-34 N MEAN CELL HGB CONCENTRATION (test 32.9 g/dL 30.8-34.1 N code = MCHC) RED CELL DISTRIBUTION WIDTH (test 14.2 % 11-16 N code = RDW) PLT (test code = PLT) 216 K/mm3 130-400 N MEAN PLATELET VOLUME (test code = 11.5 fL 8.9-12.1 N MPV) NEUTROPHIL % (test code = NT%) 54.9 % 45-70 N LYMPHOCYTE % (test code = LY%) 31.3 % 20-40 N MONOCYTE % (test code = MO%) 8.9 % 3-10 N EOSINOPHIL % (test code = EO%) 3.9 % 1-5 N BASOPHIL % (test code = BA%) 0.7 % 0.0-1.1 N NEUTROPHIL # (test code = NT#) 3.26 K/mm3 2.00-7.50 N LYMPHOCYTE # (test code = LY#) 1.86 K/mm3 1.50-4.00 N MONOCYTE # (test code = MO#) 0.53 K/mm3 0.2-0.8 N EOSINOPHIL # (test code = EO#) 0.23 K/mm3 0.04-0.4 N BASOPHIL # (test code = BA#) 0.04 K/mm3 0.02-0.10 N MANUAL DIFF REQUIRED (test code = NO MANUAL DIFF MDIFF) NUCLEATED RED BLOOD CELL (test 0 % 0-0 N code = NRBC)
== END 2021-11-04 18:02 | disposition home or self-care (01) | DRG 286 ==
LOC: ER 08:13 → ERHOLD 12:45 → 4TH 14:04
PROVIDERS: ADMIT Internal Medicine Sleep Medicine; ATTEND Internal Medicine Sleep Medicine
PROC: B2011ZZ Plain Radiography of Multiple Coronary Arteries using Low Osmolar Contrast (ICD-10-PCS; principal; 2021-11-03)
PROC: 4A023N7 Measurement of Cardiac Sampling and Pressure, Left Heart, Percutaneous Approach (ICD-10-PCS; 2021-11-03)
DX: I51.81 Takotsubo syndrome (principal); U07.1 COVID-19; Z96.651 Presence of right artificial knee joint
CPT/HCPCS: 36415; 71045; 71275; 74177; 80048; 80076; 82565; 83735; 83880; 84484; 85025; 85610; 93005; 93458; 96374; 96375; 99285; C1893; J1644; J2250; J2270; J2405; J2550; J3010; J7040; Q0162; Q9966; Q9967; U0003